=== PATIENT | male | born 1955 | race Caucasian/White ===

== ENCOUNTER 2021-12-13 10:13 | Outpatient (CLI) | payer OTHER ==
[2021-12-13 11:21] LABS: Hemoglobin 11.8 g/dL (13.5-17.5); Mean Corpuscular HGB CONC 34.8 g/dL (32.0-36.0); Mean Corpuscular Hemoglobin 33.8 pg (27.0-33.0); Mean Corpuscular Volume 97.1 fl (81.2-95.1); Mean Platelet Volume 9.6 fl (7.4-10.4); Platelet Count 163 10x3/uL (150-450); RBC Distribution Width 12.7 % (11.5-14.5); Red Blood Cell (RBC) Count 3.49 10x6/uL (4.32-5.72); White Blood Cell (WBC) Count 7.3 10x3/uL (3.5-10.5)
[2021-12-13 11:33] LABS: Anion Gap 13 mmol/L (10-20); BUN (Urea Nitrogen) 7 mg/dL (8.4-25.7); Calc. Creatinine Clearance 0 mL/min (70-130); Calcium 9.8 mg/dL (7.8-10.44); Carbon Dioxide 27 mmol/L (23-31); Chloride 97 mmol/L (98-107); Estimated GFR 102; Glucose 125 mg/dL (80-115); Sodium 133 mmol/L (136-145)
== END 2021-12-13 10:14 | disposition home or self-care (01) ==
LOC: LABBT 10:13
PROVIDERS: ATTEND Orthopaedic Surgery Hand Surgery
DX: Z01.812 Encounter for preprocedural laboratory examination (principal); M72.0 Palmar fascial fibromatosis [Dupuytren]; Z20.822 Contact with and (suspected) exposure to COVID-19
CPT/HCPCS: 80048; 85027; 87811

== ENCOUNTER 2021-12-17 11:24 | Day surgery (SDC) | payer OTHER ==
[2021-12-13 10:41] VITALS: BMI 28.0
[2021-12-17] MEDS ORDERED: Bupivacaine PF 0.5% 30 ML VIAL ONE ×2 (12:03→12:14)
[2021-12-17] MEDS ORDERED: fentaNYL Citrate/PF 100 MCG/2 ML SYRINGE ONE (12:23)
[2021-12-17] MEDS ORDERED: Sodium Chloride 0.9% 100 ML ONE (12:37)
[2021-12-17] MEDS ORDERED: CEFAZOLIN 2 GM VIAL ONE (12:37)
[2021-12-17] MEDS ORDERED: Midazolam HCl 2 mg/2 ml Vial ONE (13:58)
[2021-12-17] MEDS ORDERED: Collagenase Clostridium Hist. 0.9 MG VIAL FS SCH (14:00)
[2021-12-17] MEDS ORDERED: Collagenase Clostridium Hist. 0.9 MG VIAL ONE (14:00)
[2021-12-17] MEDS ORDERED: PROPOFOL 200 MG/20 ML VIAL ONE (14:00)
[2021-12-17] MEDS ORDERED: PROPOFOL 20 ML ONE (14:41)
[2021-12-17] MEDS ORDERED: Ketorolac Tromethamine 30 MG/ML VIAL ONE (15:11)
== END 2021-12-17 15:50 | disposition home or self-care (01) ==
LOC: SDC 11:24
PROVIDERS: ATTEND Orthopaedic Surgery Hand Surgery
PROC: 3E013TZ Introduction of Destructive Agent into Subcutaneous Tissue, Percutaneous Approach (ICD-10-PCS; principal; 2021-12-17)
DX: M72.0 Palmar fascial fibromatosis [Dupuytren] (principal); I10 Essential (primary) hypertension; J98.4 Other disorders of lung; F17.200 Nicotine dependence, unspecified, uncomplicated; Z79.01 Long term (current) use of anticoagulants; Z79.899 Other long term (current) drug therapy
CPT/HCPCS: 93005; 93010; J0690; J0775; J1885; J2250; J2704; J3490; S0020

== ENCOUNTER 2021-12-21 13:04 | Inpatient (IN) | payer OTHER ==
[2021-12-21] MEDS ORDERED: Lidocaine 1% MPF 2 ML VIAL ONE (14:18)
[2021-12-21] MEDS ORDERED: Mineral Oil Sterile 10 ML VIAL ONE (15:57)
[2021-12-21] MEDS ORDERED: Bacitracin Zinc Ointment 30 gm TUBE ONE (15:57)
[2021-12-21] MEDS ORDERED: Bupivacaine PF 0.5% 30 ML VIAL ONE (15:57)
[2021-12-21] MEDS ORDERED: Betamet Acet/Betamet Na Ph 30 MG/5 ML VIAL ONE (15:57)
[2021-12-21] MEDS ORDERED: fentaNYL Citrate/PF 100 MCG/2 ML SYRINGE ONE (16:02)
[2021-12-21] MEDS ORDERED: Ketamine 50 MG/ML (10ML VIAL) ONE (16:02)
[2021-12-21] MEDS ORDERED: Midazolam HCl 2 mg/2 ml Vial ONE (16:02)
[2021-12-21] MEDS ORDERED: CEFAZOLIN 2 GM VIAL ONE (16:07)
[2021-12-21] MEDS ORDERED: Sodium Chloride 0.9% 100 ML ONE (16:07)
[2021-12-21] MEDS ORDERED: hydrALAZINE 20 MG/ML VIAL ONE (18:08)
[2021-12-21] MEDS ORDERED: HYDROcodone/Acetaminophen 5/325 mg Tablet ONE (19:22)
[2021-12-21] MEDS ORDERED: Ondansetron PF 4 MG/2 ML Vial ONE (19:26)
[2021-12-21] MEDS ORDERED: Labetalol HCl 100 MG/20 ML VIAL ONE (19:41)
[2021-12-21 21:24] VITALS: BMI 28.0
[2021-12-21] MEDS ORDERED: HYDROcodone/Acetaminophen 7.5/325 mg Tablet PO PRN (22:17)
[2021-12-21] MEDS ORDERED: Morphine 2 MG/ML VIAL SLOW IVP PRN (22:18)
[2021-12-21] MEDS: Vancomycin 1 GM in Premix Bag 1 BAG IVPB SCH (23:16)
[2021-12-22] MEDS: cloNIDine 0.1 MG TAB PO SCH (08:18)
[2021-12-22] MEDS: Furosemide 20 MG TAB PO SCH (08:18)
[2021-12-22] MEDS: Amiodarone 200 MG TAB PO SCH (08:18)
[2021-12-22] MEDS: Losartan 25 MG TAB PO SCH (08:18)
[2021-12-22] MEDS: Metoprolol Tartrate 100 MG TAB PO SCH ×2 (08:18→21:15)
[2021-12-22] MEDS ORDERED: Ondansetron PF 4 MG/2 ML Vial IVP PRN (09:30)
[2021-12-22] MEDS ORDERED: Acetaminophen 325 MG TAB PO PRN (09:30)
[2021-12-22] MEDS ORDERED: Ondansetron ODT 4 MG TAB PO PRN (09:30)
[2021-12-22] MEDS ORDERED: Nicotine 14 MG PATCH TD PRN (09:30)
[2021-12-22] MEDS ORDERED: Fluticasone Propionate Nasal Spray 16 gm Bottle NASAL PRN ×2 (09:32→09:34)
[2021-12-22 11:10] LABS: #Basophils 0.1 thou/uL (0.0-0.2); #Lymphocytes 0.6 thou/uL (1.20-3.40); #Neutrophils 6.9 thou/uL (1.40-6.50); %Basophils 0.7 % (0.0-1.0); %Eosinophils 0.4 % (0.0-10.0); %Lymphocytes 7.1 % (21.0-51.0); %Monocytes 11.2 % (0.0-10.0); %Neutrophils 80.6 % (42.0-75.0); Hemoglobin 12.2 g/dL (14.0-18.0); Mean Corpuscular HGB CONC 32.9 g/dL (32.0-36.0); Mean Corpuscular Hemoglobin 34.3 pg (27.0-31.0); Platelet Count 171 thou/uL (130-400); RBC Distribution Width 12.3 % (11.5-14.5); Red Blood Cell (RBC) Count 3.55 mill/uL (4.70-6.10); White Blood Cell (WBC) Count 8.6 thou/uL (4.8-10.8)
[2021-12-22] MEDS: Multivitamin W/ Minerals 1 TAB PO SCH (11:19)
[2021-12-22] MEDS: Vancomycin 1 GM in Premix Bag 1 BAG IVPB SCH (11:19)
[2021-12-22] MEDS: Ascorbic Acid 500 mg Chewable Tablet PO SCH (11:19)
[2021-12-22 11:31] LABS: Anion Gap 12 mmol/L (10-20); BUN (Urea Nitrogen) 12 mg/dL (8.4-25.7); Calc. Creatinine Clearance 105 mL/min (70-130); Calcium 9.3 mg/dL (7.8-10.44); Carbon Dioxide 31 mmol/L (23-31); Chloride 100 mmol/L (98-107); Estimated GFR 96; Glucose 122 mg/dL (80-115); Potassium 3.9 mmol/L (3.5-5.1); Sodium 139 mmol/L (136-145)
[2021-12-22] MEDS: hydrALAZINE 20 MG/ML VIAL SLOW IVP PRN ×2 (13:17→17:48)
[2021-12-22] MEDS ORDERED: cloNIDine 0.1 MG TAB PO SCH (16:15)
[2021-12-22] MEDS: Famotidine 20 MG TAB PO SCH (21:15)
[2021-12-23] MEDS: Vancomycin 1 GM in Premix Bag 1 BAG IVPB SCH (00:48)
[2021-12-23] MEDS: hydrALAZINE 20 MG/ML VIAL SLOW IVP PRN ×4 (00:48→18:31)
[2021-12-23] MEDS ORDERED: cloNIDine 0.1 MG TAB PO PRN (06:16)
[2021-12-23] MEDS: cloNIDine 0.1 MG TAB PO SCH (06:22)
[2021-12-23] MEDS: Metoprolol Tartrate 100 MG TAB PO SCH ×2 (08:19→20:11)
[2021-12-23] MEDS: Furosemide 20 MG TAB PO SCH (08:19)
[2021-12-23] MEDS: Losartan 25 MG TAB PO SCH (08:19)
[2021-12-23] MEDS: Famotidine 20 MG TAB PO SCH ×2 (08:19→20:11)
[2021-12-23] MEDS: Ascorbic Acid 500 mg Chewable Tablet PO SCH (08:19)
[2021-12-23] MEDS: Amiodarone 200 MG TAB PO SCH (08:19)
[2021-12-23] MEDS: Multivitamin W/ Minerals 1 TAB PO SCH (08:19)
[2021-12-23] MEDS ORDERED: Non-Formulary Item 1 EACH (Multivit-Min/Fa/Lycopen/Lutein [Centrum Silver Men Tablet] 1 E PO SCH (09:00)
[2021-12-23] MEDS ORDERED: cloNIDine 0.2 MG TAB PO SCH ×2 (09:00→16:15)
[2021-12-23] MEDS ORDERED: Non-Formulary Item 1 EACH (Ascorbic Acid [Vitamin C] 500 MG Capsule) PO SCH (09:00)
[2021-12-23] MEDS ORDERED: cloNIDine 0.1 MG TAB PO SCH (09:00)
[2021-12-23 09:20] LABS: #Basophils 0.1 thou/uL (0.0-0.2); #Eosinphils 0.1 thou/uL (0.0-0.7); #Lymphocytes 0.8 thou/uL (1.20-3.40); #Monocytes 0.8 thou/uL (0.11-0.59); %Basophils 0.9 % (0.0-1.0); %Eosinophils 1.1 % (0.0-10.0); %Lymphocytes 9.9 % (21.0-51.0); %Monocytes 10.5 % (0.0-10.0); %Neutrophils 77.6 % (42.0-75.0); Anion Gap 15 mmol/L (10-20); BUN (Urea Nitrogen) 13 mg/dL (8.4-25.7); Calc. Creatinine Clearance 111 mL/min (70-130); Calcium 9.2 mg/dL (7.8-10.44); Carbon Dioxide 27 mmol/L (23-31); Chloride 99 mmol/L (98-107); Estimated GFR 96; Glucose 118 mg/dL (80-115); Hemoglobin 12.7 g/dL (14.0-18.0); MDiff Complete? YES; Macrocytosis SLIGHT = 6-15 cells (100X) (0-5/hpf); Mean Corpuscular HGB CONC 32.3 g/dL (32.0-36.0); Mean Corpuscular Hemoglobin 33.9 pg (27.0-31.0); Platelet Count 175 thou/uL (130-400); Platelet Morphology Comment Appears Adequate; Potassium 3.6 mmol/L (3.5-5.1); RBC Distribution Width 12.2 % (11.5-14.5); Red Blood Cell (RBC) Count 3.75 mill/uL (4.70-6.10); Sodium 137 mmol/L (136-145); White Blood Cell (WBC) Count 7.7 thou/uL (4.8-10.8)
[2021-12-23] MEDS: cloNIDine 0.2 MG TAB PO SCH (20:11)
[2021-12-24] MEDS: hydrALAZINE 20 MG/ML VIAL SLOW IVP PRN (04:00)
[2021-12-24 06:03] LABS: #Eosinphils 0.2 thou/uL (0.0-0.7); #Lymphocytes 0.9 thou/uL (1.20-3.40); #Monocytes 0.7 thou/uL (0.11-0.59); #Neutrophils 4.9 thou/uL (1.40-6.50); %Basophils 0.2 % (0.0-1.0); %Eosinophils 2.4 % (0.0-10.0); %Lymphocytes 13.3 % (21.0-51.0); %Monocytes 10.2 % (0.0-10.0); %Neutrophils 73.9 % (42.0-75.0); Hemoglobin 12.2 g/dL (14.0-18.0); Mean Corpuscular HGB CONC 33.6 g/dL (32.0-36.0); Mean Platelet Volume 7.3 fL (7.4-10.4); Platelet Count 163 thou/uL (130-400); RBC Distribution Width 12.1 % (11.5-14.5); Red Blood Cell (RBC) Count 3.49 mill/uL (4.70-6.10); White Blood Cell (WBC) Count 6.6 thou/uL (4.8-10.8)
[2021-12-24 06:23] LABS: Anion Gap 13 mmol/L (10-20); BUN (Urea Nitrogen) 15 mg/dL (8.4-25.7); Calc. Creatinine Clearance 116 mL/min (70-130); Calcium 9.6 mg/dL (7.8-10.44); Carbon Dioxide 28 mmol/L (23-31); Chloride 101 mmol/L (98-107); Estimated GFR 97; Glucose 116 mg/dL (80-115); Potassium 3.6 mmol/L (3.5-5.1); Sodium 138 mmol/L (136-145)
[2021-12-24] MEDS: cloNIDine 0.2 MG TAB PO SCH (08:36)
[2021-12-24] MEDS: Amiodarone 200 MG TAB PO SCH (08:36)
[2021-12-24] MEDS: Losartan 25 MG TAB PO SCH (08:36)
[2021-12-24] MEDS: Famotidine 20 MG TAB PO SCH (08:37)
[2021-12-24] MEDS: Furosemide 20 MG TAB PO SCH (08:37)
[2021-12-24] MEDS: Multivitamin W/ Minerals 1 TAB PO SCH (08:37)
[2021-12-24] MEDS: Ascorbic Acid 500 mg Chewable Tablet PO SCH (08:37)
[2021-12-24] MEDS: Metoprolol Tartrate 100 MG TAB PO SCH (08:37)
[2021-12-24] MEDS ORDERED: hydrALAZINE 20 MG/ML VIAL SLOW IVP PRN (08:56)
[2021-12-24] MEDS ORDERED: Amlodipine 5 MG TAB PO SCH (09:00)
[2021-12-24] MEDS ORDERED: Furosemide 40 MG/4 ML VIAL SLOW IVP SCH (09:00)
[2021-12-24 11:35] VITALS: TEMP 97.5
[2021-12-24 13:14] VITALS: BP 143/67
== END 2021-12-24 13:27 | disposition home or self-care (01) | DRG 264 ==
LOC: SDC 13:04 → 2SW 19:42 → OBSVTOIN 12-23 16:03
PROVIDERS: ADMIT Family Medicine; ATTEND Family Medicine
PROC: 0HRGX74 Replacement of Left Hand Skin with Autologous Tissue Substitute, Partial Thickness, External Approach (ICD-10-PCS; principal; 2021-12-21)
PROC: 0HRFX74 Replacement of Right Hand Skin with Autologous Tissue Substitute, Partial Thickness, External Approach (ICD-10-PCS; 2021-12-21)
PROC: 0JBK0ZZ Excision of Left Hand Subcutaneous Tissue and Fascia, Open Approach (ICD-10-PCS; 2021-12-21)
PROC: 0JBJ0ZZ Excision of Right Hand Subcutaneous Tissue and Fascia, Open Approach (ICD-10-PCS; 2021-12-21)
DX: I16.0 Hypertensive urgency (principal); I50.42 Chronic combined systolic (congestive) and diastolic (congestive) heart failure; M72.0 Palmar fascial fibromatosis [Dupuytren]; Z20.822 Contact with and (suspected) exposure to COVID-19; I48.0 Paroxysmal atrial fibrillation; I11.0 Hypertensive heart disease with heart failure; F17.290 Nicotine dependence, other tobacco product, uncomplicated; S61.251A Open bite of left index finger without damage to nail, initial encounter; S61.256A Open bite of right little finger without damage to nail, initial encounter; X58.XXXA Exposure to other specified factors, initial encounter; Z28.21 Immunization not carried out because of patient refusal; Z79.01 Long term (current) use of anticoagulants; Z98.890 Other specified postprocedural states; Z79.899 Other long term (current) drug therapy; Z79.52 Long term (current) use of systemic steroids
CPT/HCPCS: 36415; 80048; 85025; 87811; J0360; J0690; J0702; J1940; J2250; J2405; J3370; J3490; S0020

== ENCOUNTER 2022-06-14 08:15 | Outpatient (CLI) | payer OTHER ==
[2022-06-14 09:12] LABS: #Basophils 0.1 10x3/uL (0.0-0.2); #Eosinphils 0.1 10x3/uL (0.0-0.5); #Neutrophils 6.3 10x3/uL (1.5-8.4); %Basophils 0.7 % (0.0-2.0); %Eosinophils 1.3 % (0.0-6.0); %Monocytes 11.6 % (0.0-10.0); %Neutrophils 73.9 % (40.0-75.0); Hemoglobin 12.9 g/dL (13.5-17.5); Mean Corpuscular HGB CONC 35.7 g/dL (32.0-36.0); Mean Corpuscular Hemoglobin 33.2 pg (27.0-33.0); Mean Corpuscular Volume 92.8 fl (81.2-95.1); Mean Platelet Volume 9.4 fl (7.4-10.4); Platelet Count 217 10x3/uL (150-450); RBC Distribution Width 11.7 % (11.5-14.5); Red Blood Cell (RBC) Count 3.89 10x6/uL (4.32-5.72); White Blood Cell (WBC) Count 8.5 10x3/uL (3.5-10.5)
[2022-06-14 09:36] LABS: Anion Gap 18 mmol/L (10-20); BUN (Urea Nitrogen) 27 mg/dL (8.4-25.7); Calc. Creatinine Clearance 0 mL/min (70-130); Carbon Dioxide 21 mmol/L (23-31); Chloride 94 mmol/L (98-107); Estimated GFR 39; Glucose 119 mg/dL (80-115); Potassium 4.8 mmol/L (3.5-5.1); Sodium 128 mmol/L (136-145)
== END 2022-06-14 08:16 | disposition home or self-care (01) ==
LOC: LABBT 08:15
PROVIDERS: ATTEND Orthopaedic Surgery Hand Surgery
DX: Z01.818 Encounter for other preprocedural examination (principal); M72.0 Palmar fascial fibromatosis [Dupuytren]
CPT/HCPCS: 80048; 85025; 93005; 93010

== ENCOUNTER 2022-06-18 10:40 | Day surgery (SDC) | payer OTHER ==
[2022-06-14 14:34] VITALS: BMI 31.6
[2022-06-18] MEDS ORDERED: CEFAZOLIN 2 GM VIAL ONE (11:22)
[2022-06-18] MEDS ORDERED: Sodium Chloride 0.9% 100 ML ONE (11:22)
[2022-06-18] MEDS ORDERED: Lidocaine 1% PF 5 ML VIAL ONE (11:35)
[2022-06-18] MEDS ORDERED: ePHEDrine 50 MG/ML VIAL ONE (11:35)
[2022-06-18] MEDS ORDERED: PROPOFOL 200 MG/20 ML VIAL ONE (11:35)
[2022-06-18] MEDS ORDERED: fentaNYL PF 100 MCG/2 ML SYRINGE ONE (11:38)
[2022-06-18] MEDS ORDERED: Bupivacaine PF 0.5% 30 ML VIAL ONE (13:44)
[2022-06-18] MEDS ORDERED: Neomycin-Polymyxin 1 ML AMP ONE (13:44)
[2022-06-18] MEDS ORDERED: Bacitracin Zinc Ointment 30 gm TUBE ONE (13:44)
[2022-06-18] MEDS ORDERED: Ondansetron PF 4 MG/2 ML Vial ONE (15:13)
[2022-06-18] MEDS ORDERED: Ketorolac Tromethamine 30 MG/ML VIAL ONE ×2 (15:26→15:27)
[2022-06-18] MEDS ORDERED: Fentanyl 100 MCG/2 ML VIAL ONE (15:31)
== END 2022-06-18 17:08 | disposition home or self-care (01) ==
LOC: SDC 10:40
PROVIDERS: ATTEND Orthopaedic Surgery Hand Surgery
PROC: 01N40ZZ Release Ulnar Nerve, Open Approach (ICD-10-PCS; principal; 2022-06-18)
PROC: 0JNJ0ZZ Release Right Hand Subcutaneous Tissue and Fascia, Open Approach (ICD-10-PCS; principal; 2022-06-18)
PROC: 01N60ZZ Release Radial Nerve, Open Approach (ICD-10-PCS; principal; 2022-06-18)
PROC: 01N50ZZ Release Median Nerve, Open Approach (ICD-10-PCS; principal; 2022-06-18)
DX: M72.0 Palmar fascial fibromatosis [Dupuytren] (principal); I10 Essential (primary) hypertension; F17.290 Nicotine dependence, other tobacco product, uncomplicated; Z79.01 Long term (current) use of anticoagulants; Z79.899 Other long term (current) drug therapy
CPT/HCPCS: 88304; J1885; J2405; J2704; J3010; J3490; S0020